=== PATIENT | female | born 1970 | race Caucasian/White ===

== ENCOUNTER → 2020-12-04 | Outpatient (CLI) | payer OTHER | LOC: RAD 12:06 | PROVIDERS: ATTEND Internal Medicine | DX: S99.921A Unspecified injury of right foot, initial encounter (principal); M79.89 Other specified soft tissue disorders; X58.XXXA Exposure to other specified factors, initial encounter; Y93.89 Activity, other specified; Y92.89 Other specified places as the place of occurrence of the external cause; Y99.8 Other external cause status ==